=== PATIENT | male | born 2000 | race Hispanic/Latino ===

== ENCOUNTER 2018-08-08 21:58 | Emergency (ER) | payer OTHER ==
[2018-08-08] MEDS ORDERED: Ketorolac Tromethamine 30 MG/ML VIAL ONE (23:10)
[2018-08-08] MEDS ORDERED: Diazepam 5 MG TAB ONE (23:11)
== END 2018-08-08 23:44 | disposition home or self-care (01) ==
LOC: ERS 21:58
DX: S39.012A Strain of muscle, fascia and tendon of lower back, initial encounter (principal); F17.210 Nicotine dependence, cigarettes, uncomplicated; X50.9XXA Other and unspecified overexertion or strenuous movements or postures, initial encounter
CPT/HCPCS: 96372; J1885